=== PATIENT | female | born 1955 | race Caucasian/White ===

== ENCOUNTER 2021-05-28 14:06 | Emergency (ER) | payer OTHER ==
[~2021-05-28] VITALS: Ht 162.6 cm; Wt 69.4 kg
[2021-05-28 14:53] LABS: ABSOLUTE NEUTROPHILS 3.7 thou/uL (1.4-8.2); BASOPHILS 1.1 % (0.0-2.0); EOSINOPHILS 5.8 % (0.0-3.0); HEMATOCRIT 35.8 % (37.0-47.0); HEMOGLOBIN 12.7 gm/dL (12.0-15.0); LYMPHOCYTES 31.3 % (24.0-44.0); MCHC 35.5 g/dL (28.0-37.0); MCV 92.8 fL (80.0-100.0); MONOCYTES 7.3 % (1.0-8.0); PLATELET COUNT 220 thou/uL (150-400); POLYS 54.5 % (36.0-66.0); RBC 3.86 mil/uL (4.20-5.00); RDW 13.3 % (10.5-14.5); WBC 6.8 thou/uL (4.0-11.0)
[2021-05-28 15:17] LABS: CALCIUM 8.9 mg/dL (8.5-10.1); CREATININE 0.9 mg/dL (0.6-1.0); POTASSIUM 3.9 mmol/L (3.5-5.1)
[2021-05-28 15:23] LABS: ALBUMIN 3.6 g/dL (3.4-5.0); TOTAL BILIRUBIN 0.4 mg/dL (0.2-1.0); TOTAL PROTEIN 6.8 g/dL (6.4-8.2)
[2021-05-28 15:49] LABS: URINE BILIRUBIN NEGATIVE (Negative); URINE BLOOD NEGATIVE (Negative); URINE CLARITY CLEAR; URINE COLOR YELLOW; URINE GLUCOSE-RANDOM* NEGATIVE (Negative); URINE KETONES NEGATIVE (Negative); URINE NITRITE-REFLEX NEGATIVE (Negative); URINE PROTEIN (DIPSTICK) NEGATIVE (Negative); URINE SPECIFIC GRAVITY <= 1.005 (1.005-1.035); URINE UROBILINOGEN 0.2 E.U./dl (0.2-1.0)
[2021-05-28 15:55] LABS: URINE LEUKOCYTES-REFLEX 2+ (Negative)
[2021-05-28 15:57] LABS: AMP/METHAMP Negative (Negative); BARBITURATES Negative (Negative); BENZODIAZEPINES POSITIVE (Negative); COCAINE Negative (Negative); METHADONE Negative (Negative); OPIATES Negative (Negative); PCP Negative (Negative)
[2021-05-28 16:40] LABS: CASTS None Seen /LPF (None Seen); SQUAMOUS 4-10 Moderate /LPF (0-3); URINE WBC-REFLEX 0-5 Rare /HPF (0-5)
[2021-05-28 16:41] LABS: BACTERIA-REFLEX 1-9 Few /HPF (None Seen); CRYSTALS None Seen /LPF (None Seen); URINE RBC None Seen /HPF (NONE SEEN)
[2021-05-28] MEDS ORDERED: LO-DOSE ASPIRIN81 M1 PO (23:30)
[2021-05-28] MEDS ORDERED: CALCIUM500 M1 PO (23:33)
[2021-05-28] MEDS ORDERED: VITAMIN D310 MC2 PO (23:39)
[2021-05-28] MEDS ORDERED: DIAZEPAM 10 MG10 M1 PO (23:42)
[2021-05-28] MEDS ORDERED: DOCUSATE SODIU100 MG PO (23:50)
[2021-05-28] MEDS ORDERED: AMARYL2 M1 PO (23:52)
[2021-05-28] MEDS ORDERED: MIRALAX119 GM PO (23:53)
[2021-05-28] MEDS ORDERED: XYZAL5 MG PO (23:54)
[2021-05-28] MEDS ORDERED: LISINOPRIL10 MG PO (23:56)
[2021-05-28] MEDS ORDERED: METOPROLOL TAR100 MG PO (23:57)
[2021-05-28] MEDS ORDERED: MILK OF MA2400 MG/11 PO (23:59)
[2021-05-29] MEDS ORDERED: DAILY VITAMIN1 EACH PO
[2021-05-29] MEDS ORDERED: OMEPRAZOLE20 M3 PO (00:02)
[2021-05-29] MEDS ORDERED: SIMVASTATIN80 MG PO (00:04)
[2021-05-29] MEDS ORDERED: TRAMADOL 50 MG50 MG PO (00:05)
[2021-05-29 03:40] VITALS: BP 115/83
== END 2021-05-29 03:42 ==
LOC: ER 14:06
PROVIDERS: Physician Assistant
DX: R45.1 Restlessness and agitation (principal); Z20.822 Contact with and (suspected) exposure to COVID-19; E11.9 Type 2 diabetes mellitus without complications; F31.9 Bipolar disorder, unspecified; E78.5 Hyperlipidemia, unspecified; F41.9 Anxiety disorder, unspecified; I10 Essential (primary) hypertension; Z86.16 Personal history of COVID-19; Z91.09 Other allergy status, other than to drugs and biological substances; Z88.8 Allergy status to other drugs, medicaments and biological substances; Z79.82 Long term (current) use of aspirin; Z79.891 Long term (current) use of opiate analgesic; Z79.899 Other long term (current) drug therapy

== ENCOUNTER 2021-05-28 16:58 | Inpatient (IN) | payer OTHER ==
[~2021-05-28] VITALS: Ht 162.6 cm; Wt 68.0 kg
[2021-05-28] MEDS ORDERED: LO-DOSE ASPIRIN81 M1 PO (23:30)
[2021-05-28] MEDS ORDERED: CALCIUM500 M1 PO (23:33)
[2021-05-28] MEDS ORDERED: VITAMIN D310 MC2 PO (23:39)
[2021-05-28] MEDS ORDERED: DIAZEPAM 10 MG10 M1 PO (23:42)
[2021-05-28] MEDS ORDERED: DOCUSATE SODIU100 MG PO (23:50)
[2021-05-28] MEDS ORDERED: AMARYL2 M1 PO (23:52)
[2021-05-28] MEDS ORDERED: MIRALAX119 GM PO (23:53)
[2021-05-28] MEDS ORDERED: XYZAL5 MG PO (23:54)
[2021-05-28] MEDS ORDERED: LISINOPRIL10 MG PO (23:56)
[2021-05-28] MEDS ORDERED: METOPROLOL TAR100 MG PO (23:57)
[2021-05-28] MEDS ORDERED: MILK OF MA2400 MG/11 PO (23:59)
[2021-05-29] MEDS ORDERED: DAILY VITAMIN1 EACH PO
[2021-05-29] MEDS ORDERED: OMEPRAZOLE20 M3 PO (00:02)
[2021-05-29] MEDS ORDERED: SIMVASTATIN80 MG PO (00:04)
[2021-05-29] MEDS ORDERED: TRAMADOL 50 MG50 MG PO (00:05)
[2021-05-29 03:40] VITALS: BP 125/62
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
[2021-05-29 06:40] LABS: CHOLESTEROL 156 mg/dL (<200); HDL CHOLESTEROL 39 mg/dL (>40); LDL CHOLESTEROL 77 mg/dL (<100); TRIGLYCERIDE 201 mg/dL (<150); VLDL 40 mg/dL (<40)
[2021-05-29 06:41] LABS: SERUM ASSESSMENT Clear
[2021-05-29 07:15] VITALS: BP 110/73
[2021-05-29 08:47] VITALS: BP 110/73
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
[2021-05-29 10:34] LABS: ALBUMIN 3.6 g/dL (3.4-5.0)
[2021-05-29 11:42] LABS: FOLIC ACID 26.8 ng/mL (8.6-58.9)
--- NOTE | 2021-05-29 11:56 | NUR ---
Alert and orientated X4. States she keeps getting woken up which will interfere with her health. Hyperverbal later in AM. Ambulates with reg gait. Denies SI/HI. Asking for colace and tramadol. Multiple requests for different meds. Breath sounds clear. Reg HR auscultated. Color pink with brisk capillary refill and palpable peripheral pulses. Independent with voiding. Active bowel sounds over soft, rounded abdomen. Met with Dr. Dugan and SW, wants to leave AMA. Paperwork signed. Attempted to call report 5 times. Initially nursing staff stated they wanted their SW to talk with staff, when stated AMA was in affect they stated they would call administration. Their SW then called back and talked with Dr. Dugan. Attempted to call report 4 times after that conversation and it was stated that they didn't know where pt was going or call was placed on hold. Note placed in transfer documents to call if they would like report.
[2021-05-30 00:06] LABS: GLYCOHEMOGLOBIN (HGB A1C) 6.5 % (4.8-5.6)
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
--- NOTE | 2021-05-31 18:57 | D ---
[facility] [place] [address] DISCHARGE SUMMARY Name: MELLY STONER Room #: 518A-A [facility] IN M.R.#: [id number] Admission: 05/29/21 Attend Phys: Vinod Dugan DO Discharge: 05/29/21 Date of : 51 Report #: [id number] THIS REPORT FOR: cc: Liseth Mckeon Emily S. DO Kerstein, Andrew H. DO ~ DATE OF SERVICE: 05/29/2021 Note the patient left discharge against medical advice today. ATTENDING PSYCHIATRIST: Vinod Dugan D.O. Basically, no medical consultants due to leaving AMA. DISCHARGE DIAGNOSIS: Unspecified mood disorder. HOSPITAL COURSE: No discharge medications were given. The patient did not permit evaluation. I reviewed the patient's note from the [facility] on the [place] side. Basically, the patient was sent out for alleged problematic behaviors, barricaded herself in the room, stopping up toilet, talking in an aggressive tone. Basically, her discharge medications and diet and all will be per the [facility] home. Hospital course is detailed in my evaluation this morning. DISCHARGE PHYSICAL EXAMINATION: VITAL SIGNS: At the time of discharge, temperature 36.5, pulse 76, respirations 16, BP 110/73. MUSCULOSKELETAL: Normal gait and station. Wearing glasses. MENTAL STATUS EXAMINATION: Well-developed, somewhat unkempt, ill-appearing female apparently stated age. Attention and concentration, intact. Speech hyperverbal. Thought process: Linear and goal oriented. Thought content: Focused on the actions in nursing facility and disagreement with the other side's physician. Denied SI, HI. Denied auditory, visual, or tactile hallucinations. Memory not formally tested. Mood and affect is irritable, hypomanic congruent, constricted. Insight and judgment were limited. Fund of knowledge, no greater than average. Prognosis for this patient is quite guarded given long history of mental illness and refusing to remain in the hospital, though not meeting criteria for involuntary hospitalization and she did fit involuntarily. <ELECTRONICALLY SIGNED> By: Vinod Dugan DO 05/31/217 33 06 Vinod Dugan DO /nt
== END 2021-05-29 11:55 | disposition left against medical advice (07) | DRG 885 ==
LOC: SBH 16:58
PROVIDERS: ADMIT Psychiatry & Neurology Psychiatry; ATTEND Psychiatry & Neurology Psychiatry
DX: F39 Unspecified mood [affective] disorder (principal); J30.2 Other seasonal allergic rhinitis; Z53.29 Procedure and treatment not carried out because of patient's decision for other reasons; Z88.8 Allergy status to other drugs, medicaments and biological substances
CPT/HCPCS: 10880